=== PATIENT | female | born 1990 | race Caucasian/White ===

== ENCOUNTER 2018-10-27 16:25 | Emergency (ER) | payer OTHER ==
[~2018-10-27] VITALS: Ht 157.5 cm; Wt 59.9 kg
[2018-10-27 16:41] VITALS: BP 123/79; Ht 157.5 cm; Wt 59.9 kg
== END 2018-10-27 17:30 | disposition left against medical advice (07) ==
LOC: ED 16:25
DX: Z53.21 Procedure and treatment not carried out due to patient leaving prior to being seen by health care provider (principal)